=== PATIENT | male | born 2000 | race Caucasian/White ===

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

== ENCOUNTER 2022-02-03 07:56 | Day surgery (SDC) | payer OTHER ==
[~2022-02-03] VITALS: Ht 185.4 cm; Wt 92.9 kg
[2022-02-03] MEDS ORDERED: LR 1,000 ML IV SCH ×2 (08:20→12:25)
[2022-02-03] MEDS ORDERED: MIDAZOLAM INJ 2MG/2ML VIAL (J2250 PER 1MG) As Ordered ONE (10:20)
[2022-02-03] MEDS ORDERED: fentaNYL 100 MCG/2 ML INJECTION As Ordered ONE (10:21)
[2022-02-03] MEDS ORDERED: dexameTHASONE 4 MG/ML 1ML VIAL (J1100 PER 1MG) As Ordered ONE (10:21)
[2022-02-03] MEDS ORDERED: LIDOCAINE 2% 100MG/5ML SDV (FOR ANES.) As Ordered ONE (10:21)
[2022-02-03] MEDS ORDERED: ONDANSETRON 4MG 2ML VIAL As Ordered ONE (10:21)
[2022-02-03] MEDS ORDERED: KETOROLAC 60MG 2ML VIAL As Ordered ONE (10:21)
[2022-02-03] MEDS ORDERED: propofoL 200 MG/20 ML VIAL As Ordered ONE (10:21)
[2022-02-03] MEDS ORDERED: BUPIVACAINE HCL 0.25% 30ML VIAL As Ordered ONE (10:38)
[2022-02-03] MEDS ORDERED: BACITRACIN OINTMENT 30GM TUBE As Ordered ONE (10:38)
[2022-02-03] MEDS ORDERED: ceFAZolin 2 GM/D5W 50 ML IV BAG (J0690 PER 500MG) As Ordered ONE (10:39)
[2022-02-03] MEDS ORDERED: ACETAMINOPHEN 1000MG 100ML IV BAG As Ordered ONE (10:51)
[2022-02-03] MEDS ORDERED: PERC5TAB12 PO (12:21)
[2022-02-03] MEDS ORDERED: HYDROMORPHONE HCL 0.5 MG/ 0.5 ML SYRINGE (J1170 PER 1) IV PRN (12:25)
[2022-02-03] MEDS ORDERED: fentaNYL 100 MCG/2 ML INJECTION IV PRN (12:25)
[2022-02-03] MEDS ORDERED: ONDANSETRON 4MG 2ML VIAL IV PRN (12:25)
[2022-02-03] MEDS ORDERED: oxyCODONE 5MG TAB PO PRN (12:25)
[2022-02-03 12:54] VITALS: BP 140/72
== END 2022-02-03 13:35 | disposition home or self-care (01) ==
LOC: M SDC 07:56
PROVIDERS: ATTEND Orthopaedic Surgery Hand Surgery
DX: S66.212A Strain of extensor muscle, fascia and tendon of left thumb at wrist and hand level, initial encounter (principal); X58.XXXA Exposure to other specified factors, initial encounter
CPT/HCPCS: 26480; J0131; J0690; J1100; J1885; J2250; J2405; J3010